=== PATIENT | male | born 1985 | race Caucasian/White ===

== ENCOUNTER 2023-01-21 13:01 | Emergency (ER) | payer BC ==
[~2023-01-21] VITALS: Ht 167.6 cm; Wt 79.4 kg
== END 2023-01-21 17:38 | disposition home or self-care (01) ==
LOC: ER 13:01
DX: R20.0 Anesthesia of skin (principal)

== ENCOUNTER 2023-01-22 19:33 | Emergency (ER) | payer BC ==
[~2023-01-22] VITALS: Ht 167.6 cm; Wt 79.4 kg
== END 2023-01-22 22:11 | disposition left against medical advice (07) ==
LOC: ER 19:33
DX: Z53.21 Procedure and treatment not carried out due to patient leaving prior to being seen by health care provider (principal)